=== PATIENT | male | born 2005 | race Two or more races ===

== ENCOUNTER 2024-08-09 23:25 | Emergency (ER) | payer MEDICAID, OTHER ==
[~2024-08-09] VITALS: Ht 170.2 cm; Wt 57.9 kg
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
--- NOTE | 2024-08-10 01:32 | DVH ---
CLINICAL INDICATION: Injury TECHNIQUE: XY L HAND 2V XRAY Comparison: None FINDINGS/IMPRESSION: : Small cortical fragment laterally and anteriorly adjacent to the base of the 5th proximal phalanx may represent a small chip or avulsion fracture. There is otherwise no evidence of acute fracture or dis location. Soft tissues are unremarkable.
[2024-08-10 02:30] VITALS: BP 127/72; PULSE 67; RESP 16; TEMP 98.2; O2SAT 99
[2024-08-10] MEDS ORDERED: AUG875T PO (03:21)
[2024-08-10] MEDS: LIDOCAINE 1% HCL (LOCAL ANESTH.) INJ 20ML MDV ID ONE (03:34)
== END 2024-08-10 03:35 | disposition home or self-care (01) ==
LOC: ER 23:25
DX: S62.617A Displaced fracture of proximal phalanx of left little finger, initial encounter for closed fracture (principal); S61.213A Laceration without foreign body of left middle finger without damage to nail, initial encounter; Z79.899 Other long term (current) drug therapy; W22.8XXA Striking against or struck by other objects, initial encounter; Y93.89 Activity, other specified; Y92.098 Other place in other non-institutional residence as the place of occurrence of the external cause; Y99.8 Other external cause status
CPT/HCPCS: 12002; 29125; 73120